=== PATIENT | male | born 1945 | race Caucasian/White ===

== ENCOUNTER 2017-08-20 13:12 | Emergency (ER) | payer OTHER ==
[2017-08-20 13:18] VITALS: BP 123/79; PULSE 81; RESP 16; TEMP 97.3; O2SAT 99
[2017-08-20] MEDS ORDERED: Oxycodone/Acetaminophen 5/325 mg Tab PO STA (13:33)
[2017-08-20] MEDS ORDERED: Oxycodone/Acetaminophen 5/325 mg Tab ONE (13:53)
--- NOTE | 2017-08-20 13:55 | ED PDOC ---
HPI: Back Time Seen by Provider: 08/20/17 13:19 Chief Complaint (Nursing): Back Pain History Per: Patient History/Exam Limitations: no limitations Onset/Duration Of Symptoms: Days (3 years) Current Symptoms Are (Timing): Still Present Quality Of Discomfort: "Pain" Severity: Moderate Previous Symptoms: Back Pain, Chronic Pain, Prior Surgery Associated Symptoms: None Additional Complaint(s): 71 y/o male with history of chronic back pain, and multiple surgeries for disc herniation, here today complaining of back pain. Denies numbness, weakness, incontinence, hematuria, dysuria, abdominal pain, fever, or recent trauma. He reports that he usually takes Percocet, prescribed by his PMD monthly, however he has run out. Last filled 06/20/17. Patient is here in [place], visiting from [place]. Past Medical History Vital Signs: Last Vital Signs Temp 97.3 F L 08/20/17 13:15 Pulse 81 08/20/17 13:15 Resp 16 08/20/17 13:15 BP 123/79 08/20/17 13:15 Pulse Ox 99 08/20/17 13:15 - Medical History PMH: Back Problems, HTN Denies: Diabetes - Surgical History Surgical History: Back Surgery - Family History Family History: States: Unknown Family Hx - Social History Current smoker - smoking cessation education provided: No Ex-Smoker (has not smoked in the last 12 months): No Alcohol: None Drugs: Denies - Home Medications Home Medications: Ambulatory Orders Medication Instructions Recorded oxyCODONE [oxyCODONE Immediate 5 mg PO TID PRN #18 tab 10/19/16 Release Tab] Meloxicam [Mobic] 15 mg PO DAILY PRN #15 tab 08/20/17 Metaxalone [Skelaxin] 800 mg PO Q8 PRN #15 tablet 08/20/17 - Allergies Allergies/Adverse Reactions: Allergies Allergy/AdvReac Type Severity Reaction Status Date / Time No Known Allergies Allergy Verified 10/19/16 09:54 Review of Systems Gastrointestinal: Negative for: Abdominal Pain Genitourinary Male: Negative for: Dysuria, Incontinence, Hematuria Musculoskeletal: Positive for: Back Pain Neurological: Negative for: Weakness, Numbness Physical Exam - Physical Exam Appears: Positive for: Well, No Acute Distress Skin: Positive for: Normal Color, Warm, Dry Neck: Positive for: Normal Gastrointestinal/Abdominal: Positive for: Normal Exam, Soft. Negative for: Tenderness, Guarding, Rebound Back: Positive for: Muscle Spasm (bilateral lumbar paraspinal). Negative for: Normal Inspection (multiple paraspinal well healed surgical incisions), L CVA Tenderness, R CVA Tenderness, Vertebral Tenderness - ECG O2 Sat by Pulse Oximetry: 99 (RA) Pulse Ox Interpretation: Normal Medical Decision Making Medical Decision Making: Impression: Chronic Back Pain Discussion: Patient searched [facility] Aware that showed no narcotic prescription in the last 2 years in [place]. Informed that since his pain is chronic and his PMD provides him with the prescription, we cannot prescribe narcotics. He was instructed to follow with [facility]. Toradol given. Patient offered Percocet, however he refused as it was a generic of his home medication and he felt that it would not be effective. ~ Scribe Attestation: Documented by~Terri Coleman, acting as a scribe for SAUL Shultz. Provider Scribe Attestation: All medical record entries made by the Scribe were at my direction and personally dictated by me. I have reviewed the chart and agree that the record accurately reflects my personal performance of the history, physical exam, medical decision making, and the department course for this patient. I have also personally directed, reviewed, and agree with the discharge instructions and disposition. Disposition - Clinical Impression Clinical Impression: Chronic lower back pain - Patient ED Disposition Is Patient to be Admitted: No - Disposition Referrals: [facility] [Outside] Disposition: Routine/Home Disposition Time: 14:10 Condition: STABLE Prescriptions: Meloxicam [Mobic] 15 mg PO DAILY PRN #15 tab PRN Reason: Pain Metaxalone [Skelaxin] 800 mg PO Q8 PRN #15 tablet PRN Reason: Muscle Spasm Instructions: Muscle Spasm (ED) Forms: [employer] (Chinese) Print Language: ICELANDIC
== END 2017-08-20 14:18 | disposition home or self-care (01) ==
LOC: H.ER 13:12
DX: G89.29 Other chronic pain (principal); Z87.891 Personal history of nicotine dependence; I10 Essential (primary) hypertension
CPT/HCPCS: 96372; 99281; J1885